=== PATIENT | male | born 1950 | race Caucasian/White ===

== ENCOUNTER → 2017-02-28 | Outpatient (CLI) | payer MEDICARE, BC ==
[2017-02-28 23:31] LABS: POC - CREATININE 1.58 mg/dL (0.64-1.27)
== END | disposition home or self-care (01) ==
LOC: CCAT 10:12
PROVIDERS: Urology
DX: R31.0 Gross hematuria (principal); Z53.9 Procedure and treatment not carried out, unspecified reason
CPT/HCPCS: 82565

== ENCOUNTER → 2017-03-03 | Outpatient (CLI) | payer MEDICARE, BC ==
--- NOTE | ~2017-03-03 | CT3 ---
[facility] A Service of [facility] & [facility] RADIOLOGY TEXT RESULTS PATIENT: GRAHAM AREVALO LOCATION: [facility] : 46 UNIT #: [id number] AGE: [address]: Emigdio Curry MD SEX: M ORDER DR: [id number] [facility] [address] [place], [place] [address] [id number] O MR#: [id number] Acc #: [id number] NAME: GRAHAM AREVALO : 1950 SEX: M STUDY DATE/TIME: UNIT: [facility]AT ROOM: STUDY DESCRIPTION: CT Abd and Pelv WWo Cont Attending Physician: Emigdio Curry M.D. Referring Physician: Emigdio Curry M.D. Ordering Physician: Emigdio Curry M.D. Primary Care Physician: Francis Rivas M.D. MEDICAL IMAGING REPORT This report is preliminary unless electronic signature is present EXAM CT abdomen and pelvis without and with contrast 03/03/2017 1227 hours HISTORY 67-year-old man with gross hematuria 4 weeks ago, abdominal pain and burning on urination for 1 month. Patient saw blood in urine last night. COMPARISON None TECHNIQUE Helical precontrast images were obtained from the lung bases through the pubic symphysis. Postcontrast arterial phase and 90-second delays phase images were obtained through the abdomen followed by 5-minute delayed postcontrast images through the abdomen and pelvis. Sagittal and coronal reconstructions of the delayed phase images were performed. Total exam contrast was Isovue-370 75 mL. Total exam DLP 1383 mGy - cm. This CT exam was performed with one or more of the following radiation dose reduction techniques: automatic exposure control, adjustment of mA and/or kV according to patient size, and iterative reconstruction. FINDINGS Images through the lung bases demonstrate moderate to severe centrilobular emphysema. There is no nodule, infiltrate or effusion. Noncontrasted images through the abdomen suggest tiny stones in the gallbladder without gallbladder wall thickening. No definite intrarenal stones are seen. There is a markedly dilated renal pelvis on the right. There is very coarse atherosclerotic calcification of the abdominal aorta extending into both common iliac arteries with a severe stenosis on the right perhaps occlusion. The post contact images demonstrate low-density liver lesions most STS. [facility] A Service of [facility] & [facility] RADIOLOGY TEXT RESULTS PATIENT: GRAHAM AREVALO LOCATION: [facility] : 46 UNIT #: [id number] AGE: [address]: Emigdio Curry MD SEX: M ORDER DR: consistent with cysts. There is no renal mass or abnormal enhancement. There are coarse atherosclerotic calcifications at the origin of both coronary arteries with likely significant stenosis on the right side where a very thin contrasted artery is seen extending to the renal pelvis. 90-second delayed phase images demonstrate no excretion from either kidney. Markedly dilated right kidney again noted. 5-minute delayed postcontrast images demonstrate excretion from a normal left kidney with no ureterectasis or ureteral filling defect. The right kidney demonstrates only trace dependent excreted contrast opacified urine in a posterior calyx. There is marked distension of the renal pelvis in tortuosity to the level of the ureteral pelvic junction likely chronic UPJ obstruction. No definite mass or stone is seen. The distal right ureter is decompressed and there is no right ureteral filling defect. There is no right ureteral jet seen on the delayed images through the bladder. The spleen, pancreas, adrenal glands are normal. There is no stomach or small bowel lesion. Colonic diverticulosis is present without wall thickening. The prostate is enlarged measuring 5.2 x 4.3 x 5.7 cm. The precontrast and delayed postcontrast images of the bladder demonstrate a normal left ureteral jet. There is no definite bladder wall thickening. No bladder stone or bladder filling defect is detected. Bone window images demonstrate no fracture, lytic or blastic lesion. 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 IMPRESSION 1. There is a markedly dilated right kidney with severe pelvocaliectasis to the level of the UPJ where there is no stone or mass seen. This likely represents a UPJ obstruction. 2. The left kidney and left ureter are normal. 3. The bladder demonstrates no filling defect. A normal left ureteral jet is seen. On the 5-minute delayed phase images, there is only trace excretion from the right kidney. 4. There is very coarse atherosclerotic calcification of the abdominal aorta and its branches. There is a very small single right renal artery extending to the right kidney. There is atherosclerotic change at the origin of the left renal artery. 5. There is a severe coarse calcification of the common iliac arteries, right worse than left with perhaps occlusion on the right. There is severe stenosis on the left as well. 6. Colonic diverticulosis without evidence of diverticulitis. Dictated by... [facility] A Service of [facility] RADIOLOGY TEXT RESULTS PATIENT: GRAHAM AREVALO LOCATION: [facility] : 46 UNIT #: [id number] AGE: [address]: Emigdio Curry MD SEX: M ORDER DR: Rosalia Story M.D. THIS IS AN ELECTRONICALLY VERIFIED REPORT Rosalia Story M.D. at 03/05/2017 9:25 AM EDWARD/helena TD: 03/04/2017 18:43 JOB #: [id number] MEDICAL IMAGING REPORT Page 1 of 1 COPY
[2017-03-03 11:16] LABS: POC - CREATININE 1.64 mg/dL (0.64-1.27)
== END | disposition home or self-care (01) ==
LOC: CCAT 09:35
PROVIDERS: Urology
DX: R31.0 Gross hematuria (principal); N28.89 Other specified disorders of kidney and ureter; I70.0 Atherosclerosis of aorta; I70.1 Atherosclerosis of renal artery; K57.30 Diverticulosis of large intestine without perforation or abscess without bleeding
CPT/HCPCS: 74178; 82565; 96360; 96361; Q9967